=== PATIENT | female | born 1990 | race Caucasian/White ===

== ENCOUNTER 2019-04-09 07:17 | Inpatient (IN) | payer BC ==
[2019-04-09] MEDS ORDERED: Lactated Ringers 500 ML IV ONE (08:32)
[2019-04-09] MEDS ORDERED: Acetaminophen 325 MG Tab PO PRN (08:32)
[2019-04-09] MEDS ORDERED: Methylergonovine 0.2 MG/1 ML Amp IM PRN (08:32)
[2019-04-09] MEDS ORDERED: fentaNYL 100 MCG/2 ML SDV IVPUSH PRN (08:32)
[2019-04-09] MEDS ORDERED: Ondansetron 4 MG/2 ML SDV IV PRN (08:32)
[2019-04-09] MEDS ORDERED: Tranexamic Acid 1,000 MG in Sodium Chloride 0.9% 100 ML IV PRN (08:32)
[2019-04-09] MEDS ORDERED: Sodium Chloride 0.9% 10 ML Syringe FLUSH PRN (08:32)
[2019-04-09] MEDS ORDERED: Carboprost Tromethamine 250 MCG/1 ML Amp IM PRN (08:32)
[2019-04-09] MEDS ORDERED: Lidocaine 1% 30 ML SDV INJECT PRN (08:32)
[2019-04-09] MEDS ORDERED: Misoprostol 400 MCG (4 X 100 MCG TAB) RECTAL PRN (08:32)
[2019-04-09] MEDS: Misoprostol 25 MCG (1/4 of 100 MCG) Tab VAG PRN ×2 (08:40→12:46)
--- NOTE | 2019-04-09 16:46 | HP ---
CHIEF COMPLAINT: Induction of labor. HISTORY OF PRESENT ILLNESS: The patient is a 28-year-old, 1, para 0 female, presenting at 40 weeks and 4 days' gestation for induction of labor. The patient is A-positive, GBS negative, rubella immune. The patient has no concerns on presentation. She states that she feels active movement, denies contractions, leakage of fluid or vaginal bleeding. The patient does state that early this morning, she did have a couple cramping episodes around 3 a.m. with subsequent bloody discharge as she thinks this might be "her mucus plug." The patient denies symptoms of labor or preeclampsia. PAST MEDICAL HISTORY: The patient's past medical history is significant for abnormal Pap smear in 2013 with positive ASCUS with negative HPV. The patient also has a history of acne. PAST SURGICAL HISTORY: None. FAMILY HISTORY: The patient's family history is positive for atrial fibrillation in her father and 1 brother. The patient also has a younger brother, who at age 21 due to "a hole in his heart." SOCIAL HISTORY: The patient is . 's name is Piter. The couple resides in [place], [place] on a farm. 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 No smoke exposure in the home. Adarsh's history includes a recent diagnosis of hypertension. He also states his sister was recently diagnosed with hypertension as well. No other significant past medical history or family history is present per Adarsh. MEDICATIONS: None. ALLERGIES: No known allergies. REVIEW OF SYSTEMS: The patient denies significant review of systems. She states no headaches, lightheadedness, dizziness, fever, chills, chest pain, shortness of breath, cough, abdominal pain, changes in bowel or bladder including diarrhea, constipation, or urinary frequency, urgency, or pain with urination. The patient does endorse bilateral ankle swelling. OBJECTIVE: Vital Signs: Temperature 97.8 degrees Fahrenheit, BP 130/76, HR 88 bpm. General: Awake, alert, sitting in bed, in no acute distress. The patient is anxious about going to labor. HEENT: Grossly normal. Pulmonary: Lungs are clear to auscultation bilaterally. No increased work of breathing noted. Cardiovascular: Regular rate and rhythm. No murmurs noted. Abdomen: Soft, nontender, normoactive bowel sounds. Gravid uterus present palpated at 41 cm. Fetus felt in vertex position. Cervical: The patient is noted to be 4 cm dilated, 80% effaced. -1 station. Extremities: Bilateral lower extremity edema, 2+ lower extremity edema. Neurologic: Grossly normal. NONSTRESS TEST: Report: Baseline heart rate 130 bpm, reactive strip. [place]: Uterine irritability present. No consistent contractions noted. The patient does not feel contractions. Interpretation: Category 1 strip. ADMISSION LABORATORY RESULTS: Pending. ASSESSMENT: 1. A 28-year-old 1, para 0 female presenting at 40 weeks 4 days' gestation for induction of labor with Cytotec. 2. A-positive blood type, GBS negative, rubella immune. PLAN: 1. The patient was examined and 25 mg of Cytotec was placed at around 8:30 a.m. 2. Continue routine admit and labor cares. The patient was seen and evaluated today by myself and Dr. Bruna Khan. Assessment and plan is under advisement of Dr. Khan. [facility] /[id number] Patient was personally seen and examined with the medical student. I reviewed the noted scribed on my behalf and necessary changes have been made to reflect my opinion on the history, exam, assessment, and plan. Bruna Khan MD [facility]
[2019-04-09] MEDS ORDERED: Nalbuphine 10 MG/1 ML Vial IM ONE (16:58)
[2019-04-09] MEDS: Lactated Ringers 1,000 ML IV SCH ×3 (17:00→19:52)
[2019-04-09] MEDS ORDERED: fentaNYL 100 MCG/2 ML SDV ONE (17:45)
[2019-04-09] MEDS ORDERED: EPINEPHrine 1 MG/ML SDV ONE (17:45)
--- NOTE | 2019-04-09 18:17 | PCM.PRNOTE ---
- Free Text/Narrative Note: Requested to provide analgesia to full term patient in severe pain. Upon entering the room, patient is sitting on edge of bed complaining of severe abdominal/pelvic pain and discomfort. Procedure was discussed with patient including adverse outcomes and expectations. Pt consented to analgesia, SAB/ IT. Pt placed into a proper sitting position. Landmarks for SAB/IT were identified and marked. Hands were washed and appropriate PPE was applied. Back was prepped with betadine x3. A sterile, transparent, fenestrated drape was applied. Excess betadine was removed. Using 3 mL of a 1% lidocaine solution , a skin wheel was placed at the L2/L3 interspace. A 24 ga (4 inch) Pencan spinal needle was inserted until positive for CSF. Negative for heme or paresthesias. Injected fentanyl 30 mcg, sufentanil 25 mcg, and 7.5 mg of a 0.75 % bupivacaine solution with an epi wash. Pt was placed left lateral position for approximately 20 minutes. There were zero complications or adverse outcomes. Will continue to monitor. Procedure Date & Time: 04/09/19 [id number]
[2019-04-09] MEDS: Oxytocin/Normal Saline 30 UNIT/500 ML BAG IV SCH (23:40)
[2019-04-10] MEDS ORDERED: Carboprost Tromethamine 250 MCG/1 ML Amp IM PRN (00:17)
[2019-04-10] MEDS ORDERED: Simethicone 80 MG Tab.Chew PO PRN (00:17)
[2019-04-10] MEDS ORDERED: Oxytocin 10 Units/1 ML SDV IM PRN (00:17)
[2019-04-10] MEDS ORDERED: Tranexamic Acid 1,000 MG in Sodium Chloride 0.9% 100 ML IV PRN (00:17)
[2019-04-10] MEDS ORDERED: Zolpidem 5 MG Tab PO PRN (00:17)
[2019-04-10] MEDS ORDERED: Acetaminophen 325 MG Tab PO PRN (00:17)
[2019-04-10] MEDS ORDERED: Sodium Chloride 0.9% 10 ML Syringe FLUSH PRN (00:17)
[2019-04-10] MEDS ORDERED: Benzocaine/Menthol 20%-0.5% Spray 56 GM Canister TOP PRN (00:17)
[2019-04-10] MEDS ORDERED: Misoprostol 400 MCG (4 X 100 MCG TAB) RECTAL PRN (00:17)
[2019-04-10] MEDS ORDERED: Oxytocin/Normal Saline 30 UNIT/500 ML BAG ONE (01:01)
[2019-04-10] MEDS: Oxytocin/Normal Saline 30 UNIT/500 ML BAG IV SCH (01:12)
[2019-04-10] MEDS: Ibuprofen 800 MG Tab PO PRN (01:34)
--- NOTE | 2019-04-10 01:37 | PCM.DEL ---
L & D Note - General Info Date of Service: 04/09/19 - Delivery Note Labor: Augmented by ARM Cervical Ripening Method: Misoprostil Delivery Outcome: Livebirth Delivery Method: Spontaneous Vaginal Delivery-Single Presentation: Right Occiput Anterior (ELENITA) Nuchal Cord: Present, Reduced Anesthesia Type: Intrathecal, Other (see below) (Nalbuphine) Anesthetic: Lidocaine (Xylocaine) 1% Plain Local Anesthetic Volume: 5cc Amniotic Fluid Description: Clear Episiotomy Type: None Laceration: 2nd Degree Suture type: Vicryl Suture size: 4-0 Placenta: Intact, Spontaneous Cord: 3 Vessels Estimated Blood Loss: 450 [place]: Bulb Syringe, Stimulated, Warmed, [place] Used Score 1 min: 9 Score 5 min: 9 Second Stage Interventions: Reports: Encouragement Given, Pushing Effectively, Pushing, Feet in Foot Rests, Pushing, Knee Chest Position, Pushing, Pulls Own Legs Back Induction Criteria - Chavez Score Chavez Score Dilation: 3-4 cm Chavez Score Effacement: >80% Chavez Score Infant's Station: -1 ,0 Chavez Score Cervix Position: Posterior Chavez Score Presenting Part: Reports: Cephalic - Induction Gestational Age >/= 39 wks: Yes Estimated Pelvis: Reports: Adequate Reassuring Monitoring Strip: Yes Absence of Tachy Systole: Yes - Augmentation Estimated Pelvis: Reports: Adequate Weight Estimated:: Reports: AGA Reassuring Monitoring Strip: Yes Absence of Tachy Systole: Yes - General Info Date of Service: 04/09/19 Admission Dx/Problem (Free Text): Please see admission history and physical for details. - Patient Data Vitals - Most Recent: Last Vital Signs Temp 98.1 F 04/09/19 17:15 Pulse 104 H 04/09/19 23:45 Resp 16 04/09/19 16:45 BP 100/52 L 04/09/19 23:45 Pulse Ox 98 04/09/19 07:30 Weight - Most Recent: 180 lb I&O - Last 24 Hours: Intake & Output 04/09/19 04/09/19 04/10/19 14:59 22:59 06:59 Intake Total 1000 Balance 1000 Lab Results Last 24 Hours: Laboratory Results - last 24 hr 04/09/19 Range/Units 09:16 WBC 12.4 H (5.0-10.0) 10^3/uL RBC 4.36 (4.2-5.4) 10^6/uL Hgb 13.6 (12.0-16.0) g/dL Hct 41.0 (37.0-47.0) % MCV 94.0 (80-100) fL MCH 31.2 (27.0-34.0) pg MCHC 33.2 (33.0-35.0) g/dL Plt Count 152 (150-450) 10^3/uL Med Orders - Current: Current Medications Acetaminophen (Tylenol) 650 mg PO Q4HR PRN PRN Reason: Pain (Mild 1-3) and fever Acetaminophen (Tylenol) 650 mg PO Q6H PRN PRN Reason: mild pain or fever Benzocaine/Menthol (Dermoplast Pain Relief [place]) 0 gm TOP Q4H PRN PRN Reason: Perineal comfort measures Carboprost Tromethamine (Hemabate Ds) 250 mcg IM ASDIRECTED PRN PRN Reason: HEMORRHAGE Carboprost Tromethamine (Hemabate Ds) 250 mcg IM ASDIRECTED PRN PRN Reason: Excessive vaginal bleeding Docusate Sodium (Colace) 100 mg PO BID PRN PRN Reason: Constipation Fentanyl (Sublimaze) 50 mcg IVPUSH Q1H PRN PRN Reason: Pain (moderate 4-6) Tranexamic Acid 1,000 mg/ (Sodium Chloride) 110 mls @ 660 mls/hr IV ONETIME PRN PRN Reason: Bleeding Lactated Ringer's (Ringers, Lactated) 1,000 mls @ 125 mls/hr IV ASDIRECTED [facility] Last Admin: 04/09/19 19:52 Dose: 125 mls/hr Oxytocin/Sodium Chloride (Pitocin In Ns 30 Unit/500 Ml) 30 unit in 500 mls @ 2 mls/hr IV TITRATE RADHA; Protocol Last Admin: 04/10/19 01:12 Dose: 125 mls/hr Tranexamic Acid 1,000 mg/ (Sodium Chloride) 110 mls @ 660 mls/hr IV ONETIME PRN PRN Reason: Bleeding Ibuprofen (Motrin) 800 mg PO Q8H PRN PRN Reason: Mild Pain or Fever Methylergonovine Maleate (Methergine) 0.2 mg IM ASDIRECTED PRN PRN Reason: Hemorrhage Misoprostol (Cytotec) 800 mcg RECTAL ASDIRECTED PRN PRN Reason: Hemorrhage Misoprostol (Cytotec) 800 mcg RECTAL ONETIME PRN PRN Reason: Hemorrhage Ondansetron HCl (Zofran) 4 mg IV Q4HR PRN PRN Reason: Nausea/Vomiting Last Admin: 04/09/19 17:38 Dose: 4 mg Oxytocin (Pitocin) 10 unit IM ONETIME PRN PRN Reason: Bleeding Prenat Multivit/Clinical Fellow/Iron/Folic Ac ( Plus Iron) 1 each PO DAILY RADHA Simethicone (Simethicone) 80 mg PO Q4H PRN PRN Reason: Gas Sodium Chloride (Saline Flush) 10 ml FLUSH ASDIRECTED PRN PRN Reason: Keep Vein Open Sodium Chloride (Saline Flush) 10 ml FLUSH ASDIRECTED PRN PRN Reason: Keep Vein Open Zolpidem Tartrate (Ambien) 5 mg PO BEDTIME PRN PRN Reason: Insomnia Discontinued Medications Epinephrine HCl (Adrenalin) Confirm Administered Dose 1 mg .ROUTE .STK-MED ONE Stop: 04/09/19 17:46 Last Admin: 04/09/19 19:44 Dose: Not Given Fentanyl (Sublimaze) Confirm Administered Dose 100 mcg .ROUTE .STK-MED ONE Stop: 04/09/19 17:46 Last Admin: 04/09/19 19:44 Dose: Not Given Lactated Ringer's (Ringers, Lactated) 500 mls @ 999 mls/hr IV .BOLUS ONE Stop: 04/09/19 09:02 Oxytocin/Sodium Chloride (Pitocin In Ns 30 Unit/500 Ml) Confirm Administered Dose 30 unit in 500 mls @ as directed .ROUTE .STK-MED ONE Stop: 04/10/19 01:02 Lidocaine HCl (Xylocaine-Mpf 1%) 30 ml INJECT ASDIRECTED PRN PRN Reason: Perineal Repair Last Admin: 04/09/19 23:23 Dose: 30 ml Misoprostol (Cytotec) 25 mcg VAG Q4H PRN PRN Reason: cervical ripening Last Admin: 04/09/19 12:46 Dose: 25 mcg Nalbuphine HCl (Nubain) 20 mg IM ONETIME ONE Stop: 04/09/19 16:59 Last Admin: 04/09/19 16:50 Dose: 20 mg Sufentanil Citrate (Sufenta) Confirm Administered Dose 50 mcg .ROUTE .STK-MED ONE Stop: 04/09/19 17:46 Last Admin: 04/09/19 19:45 Dose: Not Given - My Orders Last 24 Hours: My Active Orders 04/10/19 00:17 Notify Provider Vital Signs OB [RC] ASDIRECTED Up ad Fide [RC] ASDIRECTED Vital Signs [RC] PFP Acetaminophen [Tylenol] 650 mg PO Q6H PRN Benzocaine/Menthol [Dermoplast Pain Relief [place]] See Dose Instructions TOP Q4H PRN Carboprost Tromethamine [Hemabate DS] 250 mcg IM ASDIRECTED PRN Docusate Sodium [Colace] 100 mg PO BID PRN Ibuprofen [Motrin] 800 mg PO Q8H PRN Oxytocin [Pitocin] 10 unit IM ONETIME PRN Simethicone 80 mg PO Q4H PRN Sodium Chloride 0.9% [Saline Flush] 10 ml FLUSH ASDIRECTED PRN Tranexamic Acid [Cyklokapron] 1,000 mg Sodium Chloride 0.9% [Normal Saline] 100 ml IV ONETIME Zolpidem [Ambien] 5 mg PO BEDTIME PRN miSOPROStol [Cytotec] 800 mcg RECTAL ONETIME PRN Assess Lochia [WOMSER] Per Unit Routine Assess Uterine Involution [WOMSER] Per Unit Routine Breast Pump [WOMSER] Per Unit Routine Ice Therapy [OM.PC] Per Unit Routine Perineal Care [OM.PC] Per Unit Routine Saline Lock Insert [OM.PC] Urgent Sitz Bath [OM.PC] Per Unit Routine 04/10/19 05:59 CBC W/O DIFF,HEMOGRAM [HEME] Routine 04/10/19 09:00 Vit with Ca/FA/Iron [ Plus Iron] 1 each PO DAILY
--- NOTE | 2019-04-10 04:44 | DEL ---
DATE: 04/09/2019 PREPROCEDURE DIAGNOSES: 1. 40-week 4-day intrauterine . 2. 1, para 0. 3. History of abnormal Pap with atypical squamous cells of undetermined significance in 2013. 4. A-positive, group B streptococcus negative, rubella immune. POSTPROCEDURE DIAGNOSES: 1. 40-week 4-day intrauterine . 2. 1, para 0. 3. History of abnormal Pap with atypical squamous cells of undetermined significance in 2013. 4. A-positive, group B streptococcus negative, rubella immune. 5. Delivery of term female weighing 7 pounds 11 ounces. scores were 9 and 9 at 1 and 5 minutes respectively. BRIEF HISTORY: The patient is a 28-year-old, 1, para 0 female, who presented to Labor and Delivery at 40 weeks 4 days' gestation for induction of labor. On admission, the patient denied contractions, leakage of fluid, vaginal bleeding, or symptoms of preeclampsia. The patient did endorse active movement. The patient also states she had a rather nonsignificant course. Induction was begun with placement of Cytotec at 0840 hours. At that time, the patient was noted to be 4 cm dilated, 80% effaced, -3 station. The patient was given second dose of Cytotec at 1240 hours. After this second dose of Cytotec, the patient was noted to be kaden well. At 1645 hours, the patient was checked again and noted to be 5 cm, 80% effaced. At this time, artificial rupture of membranes was completed and clear fluid was noted upon rupture. Immediately after rupture of membranes, the patient noted major increase in intensity and frequency of contractions. The patient was given 1 dose of Nubain at 1655 hours. The patient then requested an intrathecal. The patient was checked again at 1730 hours and was noted to be 5 cm, 95% effaced, and 0 station. She also received a dose of Zofran at 1735 hours. The patient received intrathecal anesthesia at 1754 hours and then was able to rest and labor down. The patient was then checked again at 2030 hours and noted to be a rim. The patient continued to labor down until determining complete status as the patient noted increased urge to push. The patient was noted to be complete at 2159 hours, and the patient was then coached through strategies for pushing. The patient continued to push in the dorsal lithotomy position. The patient pushed for approximately 1 hour and 17 minutes. DESCRIPTION OF PROCEDURE: The patient delivered a viable female infant in the ROP position over an intact perineum. Time of was 2317 hours. Baby was bulb suctioned, stimulated, and placed on the mother's chest for warmth and bonding. Nuchal cord x1 wrapped around shoulders and back, was bluntly reduced upon delivery. Three-vessel umbilical cord was clamped and cut after short delay. Delivery of placenta occurred at 2338 hours, approximately 21 minutes after delivery by gentle cord traction and concomitant uterine massage. Pitocin was bolused initially to facilitate uterine contraction. Upon delivery of placenta, it was inspected and noted to be intact. The patient's labia and vagina were also inspected and a second-degree perineal laceration was noted. A 5 mL of Xylocaine 1% plain was drawn and used to numb perineum and laceration was then repaired without complications. Repair was noted to be hemostatic with no concerns. COMPLICATIONS: None. FINDINGS: Viable term female infant with scores of 9 and 9 at 1 and 5 minutes respectively. weight 7 pounds 11 ounces. ESTIMATED BLOOD LOSS: 450 mL. DISPOSITION: Mother and baby to stay in delivery room at this time to initiate bonding and . ASSESSMENT: The patient is doing well post spontaneous vaginal delivery of term female infant. PLAN: 1. Initiate routine cares. 2. . 3. Baby is to remain with mother and father as much as possible to initiate and bonding. Procedure was completed today by myself and Dr. Bruna Khan. Assessment and plan of procedure is under advisement of Dr. Bruna Khan. -Mariely Armenta MS-III [facility] /[id number] [place]FF[place]
[2019-04-10] MEDS: Docusate Sodium 100 MG Cap PO PRN ×2 (09:33→20:46)
[2019-04-10] MEDS: Prenatal Multivitamin with Calcium/Folic Acid/Iron Tab PO SCH (09:33)
--- NOTE | 2019-04-10 11:04 | PN ---
DATE: 04/10/2019 SUBJECTIVE: The patient is a 28-year-old 1, para 0 female, who presented at 40 weeks and 4 days' gestation for induction of labor. The patient has no complaints overnight. She states that she is having moderate but expected vaginal bleeding and cramping, especially with . The patient is ambulating well and recently got up to shower, which has made her feel much better. The patient denies any symptoms of headache, fever, chills, excessive bleeding, or cramping. The patient does still endorse lower extremity edema bilaterally. She has no other concerns at this time. OBJECTIVE: Vital Signs: Temperature 98.4, HR 102 bpm, BP 105/62, RR 16 breaths per minute. General: Awake, alert, standing beside bed. HEENT: Grossly normal. Cardiovascular: Regular rate and rhythm. No murmurs noted. Pulmonary: Lungs are clear to auscultation bilaterally. No increased work of breathing. Abdomen: Soft, mildly tender to palpation. Uterus palpated 4 cm below umbilicus. Firm. Extremities: Bilateral 3+ ankle edema noted. No tenderness to calf palpation bilaterally. Neurologic: Grossly normal. RECENT LABORATORY RESULTS: Hematology: WBC 17.8, RBC 3.39, hemoglobin 10.6, hematocrit 31.9, platelet count 134. ASSESSMENT: 1. The patient is a 28-year-old 1, para 0 female, who presented at 40 weeks and 4 days' gestation for induction of labor with Cytotec. 2. A-positive blood type, GBS negative, rubella immune. 3. Spontaneous vaginal delivery with term female and 2nd degree perineal laceration, repaired 4. . PLAN: 1. Continue routine cares. 2. Mother is . The patient seen and evaluated today by myself and Dr. Bruna Khan. Assessment and plan are under advisement of Dr. Khan. [facility] /[id number] Patient was personally seen and examined with the medical student. I reviewed the noted scribed on my behalf and necessary changes have been made to reflect my opinion on the history, exam, assessment, and plan. Bruna Khan MD [facility]
[2019-04-11] MEDS: Docusate Sodium 100 MG Cap PO PRN (09:05)
[2019-04-11] MEDS: Ibuprofen 800 MG Tab PO PRN (09:05)
[2019-04-11] MEDS: Prenatal Multivitamin with Calcium/Folic Acid/Iron Tab PO SCH (09:05)
[2019-04-11] MEDS ORDERED: EPINEPHrine 1 MG/ML SDV ONE (09:49)
[2019-04-11] MEDS ORDERED: fentaNYL 100 MCG/2 ML SDV ITHECAL ONE (09:49)
--- NOTE | 2019-04-13 14:52 | DISCH ---
ADMIT DIAGNOSES: 1. Intrauterine at 40-4/7th weeks. 2. Group B Streptococcus negative. 3. Rubella nonimmune. 4. G1, P0. DISCHARGE DIAGNOSES: 1. Intrauterine at 40-4/7th weeks - delivered. 2. Group B Streptococcus negative. 3. Rubella nonimmune. 4. G1, P0. 5. Breast-feeding. 6. Anemia of acute blood loss. Hemoglobin dropping from 13.6 to 10.6. 7. suspected thrombocytopenia related to gestation with platelets of 134,000 on 04/10/2019. HISTORY OF PRESENT ILLNESS: Please see H and P. SUMMARY OF HOSPITAL COURSE: The patient was admitted on the above date with the above diagnoses. She underwent Cytotec type of induction and went on to have spontaneous vaginal delivery. Please see progress notes and delivery notes for further details. day #1, please see progress note. day #2, date of discharge, the patient was requesting discharge and I, Dr. Carroll, shortly evaluated the patient and asked questions before she left and Dr. Vizcarra did not get a chance to evaluate her. DISCHARGE PHYSICAL EXAMINATION: Vital Signs: Temperature 98.7, heart rate 91, blood pressure 103/59, respiratory rate 16. Appearance: In no apparent distress. No increased work of breathing. Nurses note no concerns. CONDITION ON DISCHARGE COMPARED TO CONDITION ON ADMISSION: Improved. DISCHARGE INSTRUCTIONS: 1. Diet: As tolerated. 2. Activity: Please see discharge plan which was reviewed through nurses revealing to minimize lifting, sit-ups, and straining. FOLLOWUP: Follow up in 6 weeks for . I did discuss with the patient in the interim reasons to return or go to the emergency room with regard to her infant. She understands and agrees with the above treatment plan. [facility] /[id number]
== END 2019-04-11 09:50 | disposition home or self-care (01) | DRG 560 ==
LOC: DL.OBCHECK 07:17 → DL.OB 07:19 → OBSVTOIN 23:17
PROVIDERS: ADMIT Family Medicine; ATTEND Family Medicine
PROC: 10E0XZZ Delivery of Products of Conception, External Approach (ICD-10-PCS; principal; 2019-04-09)
PROC: 3E033VJ Introduction of Other Hormone into Peripheral Vein, Percutaneous Approach (ICD-10-PCS; 2019-04-09)
PROC: 4A1HXCZ Monitoring of Products of Conception, Cardiac Rate, External Approach (ICD-10-PCS; 2019-04-09)
PROC: 0KQM0ZZ Repair Perineum Muscle, Open Approach (ICD-10-PCS; 2019-04-09)
PROC: 3E0R3BZ Introduction of Anesthetic Agent into Spinal Canal, Percutaneous Approach (ICD-10-PCS; 2019-04-09)
PROC: 10907ZC Drainage of Amniotic Fluid, Therapeutic from Products of Conception, Via Natural or Artificial Opening (ICD-10-PCS; 2019-04-09)
DX: O48.0 Post-term pregnancy (principal); Z3A.40 40 weeks gestation of pregnancy; Z37.0 Single live birth; O70.1 Second degree perineal laceration during delivery; O69.81X0 Labor and delivery complicated by cord around neck, without compression, not applicable or unspecified; O72.3 Postpartum coagulation defects; O90.81 Anemia of the puerperium; D62 Acute posthemorrhagic anemia; D69.6 Thrombocytopenia, unspecified
CPT/HCPCS: 36415; 59025; 59409; 85027; A9270-GY; J0171; J2001; J2300; J2405; J2590; J3010; J7120

== ENCOUNTER 2021-12-08 09:06 | Inpatient (IN) | payer BC ==
[~2021-12-08 09:06] MED LIST: Acetaminophen 325 MG Tab PO PRN; Carboprost Tromethamine 250 MCG/1 ML Amp IM PRN; Lactated Ringers 1,000 ML IV ONE; Lidocaine 1% 30 ML SDV INJECT PRN; Methylergonovine 0.2 MG/1 ML Amp IM PRN; Misoprostol 400 MCG (4 X 100 MCG TAB) RECTAL PRN; Nalbuphine 10 MG/1 ML Vial IM PRN; Nalbuphine 10 MG/1 ML Vial IVPUSH PRN; Sodium Chloride 0.9% 10 ML Syringe FLUSH PRN; Tranexamic Acid 1,000 MG in Sodium Chloride 0.9% 100 ML IV PRN; fentaNYL 100 MCG/2 ML SDV IVPUSH PRN
[2021-12-08] MEDS ORDERED: Oxytocin/Normal Saline 30 UNIT/500 ML BAG IV SCH (09:15)
[2021-12-08] MEDS: Lactated Ringers 1,000 ML IV SCH ×3 (10:10→16:21)
[2021-12-08] MEDS ORDERED: EPINEPHrine 1 MG/ML SDV ONE (13:15)
[2021-12-08] MEDS ORDERED: Sodium Bicarbonate 4.2% 2.5 MEQ/5 ML SDV ONE (13:15)
[2021-12-08] MEDS ORDERED: fentaNYL 100 MCG/2 ML SDV ONE (13:15)
[2021-12-08] MEDS: Ondansetron 4 MG/2 ML SDV IVPUSH PRN ×2 (13:15→14:20)
[2021-12-08] MEDS ORDERED: Famotidine 20 MG/2 ML SDV ONE (14:11)
[2021-12-08] MEDS ORDERED: Famotidine 20 MG/2 ML SDV IVPUSH STA (14:21)
[2021-12-08] MEDS ORDERED: Metoclopramide 10 MG/2 ML SDV ONE (15:27)
[2021-12-08] MEDS ORDERED: Metoclopramide 10 MG/2 ML SDV IVPUSH STA (16:25)
[2021-12-08] MEDS ORDERED: Oxytocin 10 Units/1 ML SDV IM PRN (17:41)
[2021-12-08] MEDS ORDERED: Simethicone 80 MG Tab.Chew PO PRN (17:41)
[2021-12-08] MEDS ORDERED: Ibuprofen 800 MG Tab PO PRN (17:41)
[2021-12-08] MEDS ORDERED: Acetaminophen 325 MG Tab PO PRN (17:41)
[2021-12-08] MEDS ORDERED: Benzocaine/Menthol 20%-0.5% Spray 78 GM Cannister TOP PRN (17:41)
[2021-12-08] MEDS: Docusate Sodium 100 MG Cap PO PRN (20:48)
[2021-12-09] MEDS ORDERED: Prenatal Multivitamin with Calcium/Folic Acid/Iron Tab PO SCH (09:00)
[2021-12-09] MEDS: Docusate Sodium 100 MG Cap PO PRN (09:14)
== END 2021-12-09 16:55 | disposition home or self-care (01) | DRG 560 ==
LOC: DL.OB 09:06 → OBSVTOIN 15:10
PROVIDERS: ADMIT Family Medicine; ATTEND Family Medicine
PROC: 10E0XZZ Delivery of Products of Conception, External Approach (ICD-10-PCS; principal; 2021-12-08)
PROC: 10907ZC Drainage of Amniotic Fluid, Therapeutic from Products of Conception, Via Natural or Artificial Opening (ICD-10-PCS; 2021-12-08)
PROC: 0W8NXZZ Division of Female Perineum, External Approach (ICD-10-PCS; 2021-12-08)
DX: O48.0 Post-term pregnancy (principal); Z3A.40 40 weeks gestation of pregnancy; Z37.0 Single live birth; Z20.822 Contact with and (suspected) exposure to COVID-19
CPT/HCPCS: 36415; 59025; 59409; 85027; A9270-GY; J2405; J2590; J2765; J3490; J7120; U0002

== ENCOUNTER 2024-12-04 10:10 | Inpatient (IN) | payer BC ==
[2024-12-04] MEDS ORDERED: Methylergonovine 0.2 MG/1 ML Amp IM PRN (11:13)
[2024-12-04] MEDS ORDERED: Sodium Chloride 0.9% 10 ML Syringe FLUSH PRN (11:13)
[2024-12-04] MEDS ORDERED: Misoprostol 100 MCG Tab RECTAL PRN (11:13)
[2024-12-04] MEDS ORDERED: Ondansetron 4 MG/2 ML SDV IVPUSH PRN (11:13)
[2024-12-04] MEDS ORDERED: Carboprost Tromethamine 250 MCG/1 ML Amp IM PRN (11:13)
[2024-12-04] MEDS ORDERED: Tranexamic Acid 1,000 MG in Sodium Chloride 0.9% 100 ML IV PRN (11:13)
[2024-12-04] MEDS ORDERED: Acetaminophen 325 MG Tab PO PRN ×2 (11:13→18:03)
[2024-12-04] MEDS ORDERED: fentaNYL 100 MCG/2 ML SDV IVPUSH PRN (11:13)
[2024-12-04] MEDS ORDERED: Oxytocin/Normal Saline 30 UNIT/500 ML BAG IV SCH (11:15)
[2024-12-04 12:47] LABS: HEMATOCRIT 37.4 % (37.0-47.0); HEMOGLOBIN 12.1 g/dL (12.0-16.0); MEAN CORPUSCULAR HEMOGLOBIN 29.8 pg (27.0-34.0); MEAN CORPUSCULAR HGB CONC 32.4 g/dL (33.0-35.0); MEAN CORPUSCULAR VOLUME 92.1 fL (80-100); RED BLOOD CELL COUNT 4.06 10^6/uL (4.2-5.4); WHITE BLOOD CELL COUNT,WBC 9.9 10^3/uL (5.0-10.0)
[2024-12-04] MEDS: Oxytocin/Lactated Ringers 30 UNIT/500 ML BAG IV SCH (17:50)
[2024-12-04] MEDS: Lactated Ringers 1,000 ML IV SCH (17:50)
[2024-12-04] MEDS ORDERED: Oxytocin 10 Units/1 ML SDV IM PRN (18:03)
[2024-12-04] MEDS ORDERED: Simethicone 80 MG Tab.Chew PO PRN (18:03)
[2024-12-04] MEDS ORDERED: Methylergonovine 0.2 MG Tab PO PRN (18:03)
[2024-12-04] MEDS: Witch Hazel Medicated Pads 100/Jar TOP PRN (19:13)
[2024-12-04] MEDS: Benzocaine/Menthol 20%-0.5% Spray 78 GM Cannister TOP PRN (19:13)
[2024-12-04] MEDS: Lactated Ringers 1,000 ML IV ONE (19:29)
[2024-12-04] MEDS: Lidocaine 1% 30 ML SDV INJECT ONE (19:30)
[2024-12-04] MEDS: Docusate Sodium 100 MG Cap PO PRN (21:03)
[2024-12-05] MEDS: Ibuprofen 800 MG Tab PO SCH (06:33)
[2024-12-05] MEDS: Prenatal Multivitamin with Calcium/Folic Acid/Iron Tab PO SCH (08:51)
== END 2024-12-05 19:57 | disposition home or self-care (01) | DRG 560 ==
LOC: DL.OB 12:00 → OBSVTOIN 17:39
PROVIDERS: ADMIT Family Medicine; ATTEND Family Medicine
PROC: 10E0XZZ Delivery of Products of Conception, External Approach (ICD-10-PCS; principal; 2024-12-04)
DX: O99.214 Obesity complicating childbirth (principal); E66.9 Obesity, unspecified; Z79.899 Other long term (current) drug therapy; Z37.0 Single live birth; Z3A.39 39 weeks gestation of pregnancy
CPT/HCPCS: 36415; 59409; 85027; A9270-GY; J7120